=== PATIENT | male | born 1960 | race Caucasian/White ===

== ENCOUNTER 2017-07-28 09:02 | Inpatient (IN) | payer BC, OTHER ==
[~2017-07-28 09:02] MED LIST: Bisacodyl 5 MG Tab PO PRN; Lactated Ringers 1,000 ML IV SCH; Lidocaine 1%/Sod Bicarbonate in NS 8.4% 1 ML Syringe IV PRN; Magnesium Hydroxide 400 MG/5 ML Susp 30 ML Cup PO PRN; Morphine 2 MG/ML Syringe IVPUSH PRN; Naloxone 0.4 MG/ML SDV IVPUSH PRN; Ondansetron 4 MG/2 ML SDV IVPUSH PRN; Sennosides 8.6 MG Tab PO PRN; Sodium Chloride 0.9% 10 ML Syringe FLUSH PRN; diphenhydrAMINE 50 MG/ML SDV IVPUSH PRN
[2017-07-28] MEDS ORDERED: Iodine/Sodium Iodide 2% Tincture 30 ML Bottle ONE (09:23)
--- NOTE | 2017-07-28 09:44 | PCM.PREANE ---
Preanesthetic Assessment - Anesthesia/Transfusion/Family Hx Anesthesia History: Prior Anesthesia Without Reaction Family History of Anesthesia Reaction: No Transfusion History: No Prior Transfusion(s) - Review of Systems General: No Symptoms Pulmonary: No Symptoms Cardiovascular: No Symptoms Gastrointestinal: No Symptoms Neurological: No Symptoms Other: Reports: None - Physical Assessment NPO Status Date: 07/27/17 NPO Status Time: 00:00 Pulse: 69 O2 Sat by Pulse Oximetry: 97 Respiratory Rate: 16 Blood Pressure: 151/90 Temperature: 36.6 C Height: 1.75 m Weight: 103.374 kg ASA Class: 2 Mental Status: Alert & Oriented x3 Dentition: Reports: Normal Dentition Thyro-Mental Finger Breadths: 3 Mouth Opening Finger Breadths: 3 ROM/Head Extension: Full Lungs: Clear to Auscultation, Normal Respiratory Effort Cardiovascular: Regular Rate, Regular Rhythm, No Murmurs - Lab Values: Laboratory Last Values MRSA (PCR) Negative 07/15/17 16:00 - Allergies Allergies/Adverse Reactions: Allergies Allergy/AdvReac Type Severity Reaction Status Date / Time No Known Allergies Allergy Verified 07/27/17 11:04 - Acknowledgements Anesthesia Type Planned: Spinal Pt an Appropriate Candidate for the Planned Anesthesia: Yes Alternatives and Risks of Anesthesia Discussed w Pt/Guardian: Yes Pt/Guardian Understands and Agrees with Anesthesia Plan: Yes PreAnesthesia Questionnaire HEENT History: Reports: Impaired Vision, Other (See Below) Other HEENT History: wears glasses Cardiovascular History: Reports: SOB on Exertion Respiratory History: Reports: Sleep Apnea Gastrointestinal History: Reports: None Genitourinary History: Reports: None PRODUCE SPECIALIST History: Reports: None Musculoskeletal History: Reports: Osteoarthritis, Other (See Below) Neurological History: Reports: None Psychiatric History: Reports: None Endocrine/Metabolic History: Reports: Obesity/BMI 30+ Hematologic History: Reports: None Immunologic History: Reports: None Oncologic (Cancer) History: Reports: None Dermatologic History: Reports: None - Past Surgical History Head Surgeries/Procedures: Reports: None GI Surgical History: Reports: Colonoscopy Female Surgical History: Reports: None Male Surgical History: Reports: None Neurological Surgical History: Reports: Other (See Below) Other Neurological Surgeries/Procedures: back surgery Musculoskeletal Surgical History: Reports: Other (See Below) Other Musculoskeletal Surgeries/Procedures:: R carpal tunnel syndrome with repair, back surgery, left foot bone spur surgery Oncologic Surgical History: Reports: None Dermatological Surgical History: Reports: None - SUBSTANCE USE Smoking Status *Q: Never Smoker Tobacco Use Within Last Twelve Months: No Second Hand Smoke Exposure: No Days Per Week of Alcohol Use: 0 Number of Drinks Per Day: 0 Total Drinks Per Week: 0 Recreational Drug Use History: No - HOME MEDS Home Medications: Home Meds Aspirin [Adult Low Dose Aspirin EC] 81 mg PO DAILY 07/27/17 [History] - CURRENT (IN HOUSE) MEDS Current Meds: Current Medications Aspirin (Ecotrin) 325 mg PO BID [facility] Bisacodyl (Dulcolax) 5 mg PO DAILY PRN PRN Reason: Constipation Morphine Sulfate 8 mg/Epinephrine HCl 0.3 mg/Cefuroxime Sodium 750 mg/Ketorolac Tromethamine 30 mg/Sodium Chloride 27.9 ml 0 mg .XX ONETIME ONE Stop: 07/28/17 06:38 Cyclobenzaprine HCl (Flexeril) 10 mg PO TID PRN PRN Reason: Spasms Diphenhydramine HCl (Benadryl) 25 mg IVPUSH Q4H PRN PRN Reason: Nausea Docusate Sodium (Colace) 100 mg PO BID [facility] Famotidine (Pepcid) 20 mg PO Q12H [facility] Lactated Ringer's (Ringers, Lactated) 1,000 mls @ 125 mls/hr IV ASDIRECTED [facility] Stop: 07/28/17 18:00 Cefazolin Sodium/Dextrose 2 gm (/ Premix) 50 mls @ 100 mls/hr IV Q8H [facility] Stop: 07/28/17 23:14 Ketorolac Tromethamine (Toradol) 15 mg IVPUSH Q6H PRN PRN Reason: Pain Lidocaine/Sodium Bicarbonate (Buffered Lidocaine 1% In Ns 8.4%) 0.25 ml IV ONETIME PRN PRN Reason: Prior to IV Start Stop: 07/28/17 18:00 Magnesium Hydroxide (Milk Of Magnesia) 30 ml PO BID PRN PRN Reason: Constipation Morphine Sulfate (Morphine) 2 mg IVPUSH Q2H PRN PRN Reason: Breakthrough Pain Naloxone HCl (Narcan) 0.1 mg IVPUSH Q5M PRN PRN Reason: Oversedation Ondansetron HCl (Zofran) 4 mg IVPUSH Q6H PRN PRN Reason: Nausea/Vomiting Oxycodone/Acetaminophen (Percocet 325-5 Mg) 1 - 2 tab PO Q4H PRN PRN Reason: Pain Senna (Senna) 8.6 mg PO BID PRN PRN Reason: Constipation Sodium Chloride (Saline Flush) 10 ml FLUSH ASDIRECTED PRN PRN Reason: Keep Vein Open Discontinued Medications Bupivacaine HCl (Marcaine 0.25%) Confirm Administered Dose 30 ml .ROUTE .STK- MED ONE Stop: 07/28/17 09:24 Cefazolin Sodium (Ancef) Confirm Administered Dose 2 gm .ROUTE .STK-MED ONE Stop: 07/28/17 09:24 Iodine (Iodine 2% Mild Tincture) Confirm Administered Dose 30 ml .ROUTE .STK- MED ONE Stop: 07/28/17 09:24 Tranexamic Acid (Cyklokapron) Confirm Administered Dose 1,000 mg .ROUTE .STK- MED ONE Stop: 07/28/17 09:24 Vancomycin HCl (Vancomycin) Confirm Administered Dose 1 gm .ROUTE .STK-MED ONE Stop: 07/28/17 09:24
[2017-07-28] MEDS ORDERED: Ondansetron 4 MG/2 ML SDV ONE (10:07)
[2017-07-28] MEDS ORDERED: Propofol 200 MG/20 ML SDV ONE ×3 (10:07→11:42)
[2017-07-28] MEDS ORDERED: Midazolam 1 MG/ML 2 ML SDV ONE (10:07)
[2017-07-28] MEDS ORDERED: fentaNYL 100 MCG/2 ML SDV ONE (10:07)
[2017-07-28] MEDS ORDERED: Lidocaine 1% 4 ML ONE (10:07)
[2017-07-28] MEDS ORDERED: ceFAZolin 1 GM Vial ONE (10:08)
[2017-07-28] MEDS ORDERED: Morphine PF 1 MG/ML Amp ONE (10:33)
[2017-07-28] MEDS: Bupivacaine 0.25% 30 ML SDV ONE ×2 (11:11→11:30)
[2017-07-28] MEDS: ceFAZolin 1 GM Vial ONE ×2 (11:13→11:25)
[2017-07-28] MEDS: Morphine 8 MG, EPINEPHrine 0.3 MG, Cefuroxime 750 MG, Ketorolac 30 MG, Sodium Chloride ... ONE ×10 (11:17→11:30)
[2017-07-28] MEDS: Vancomycin 1 GM SDV ONE ×2 (11:18→11:35)
[2017-07-28] MEDS ORDERED: fentaNYL 100 MCG/2 ML SDV IVPUSH PRN (12:16)
--- NOTE | 2017-07-28 12:18 | PCM.POSTAN ---
POST ANESTHESIA ASSESSMENT - MENTAL STATUS Mental Status: Alert, Oriented - VITAL SIGNS Pulse Rate: 64 SaO2: 98 Resp Rate: 19 Blood Pressure: 123/74 Temperature: 36.6 C - RESPIRATORY Respiratory Status: Respiratory Rate WNL, Airway Patent, O2 Saturation Stable - CARDIOVASCULAR CV Status: Pulse Rate WNL, Blood Pressure Stable - GASTROINTESTINAL GI Status: No Symptoms - PAIN Pain Score: 0 - POST OP HYDRATION Hydration Status: Adequate & Stable - OBSERVATIONS Free Text/Narrative:: no anesthesia complications noted
--- NOTE | 2017-07-28 13:22 | CR ---
Right knee: AP and lateral views of the right knee were obtained. Comparison: No previous knee exam. Knee prosthesis is seen. Components are aligned. Soft tissue air is noted. Underlying bony structures are intact. Impression: 1. Satisfactory appearance of a recently placed right knee prosthesis. Diagnostic code #2
[2017-07-28] MEDS: ceFAZolin 2 GM in Premix Bag 1 BAG IV SCH (17:08)
[2017-07-28] MEDS: Acetaminophen/oxyCODONE 325-5 MG Tab PO PRN (20:16)
[2017-07-28] MEDS: Famotidine 20 MG Tab PO SCH (20:16)
[2017-07-28] MEDS: Docusate Sodium 100 MG Cap PO SCH (20:16)
--- NOTE | 2017-07-28 20:58 | PCM.CONS ---
H&P History of Present Illness - General Date of Service: 07/28/17 Admit Problem/Dx: Admission Diagnosis/Problem Admission Diagnosis/Problem Osteoarthritis of knee Source of Information: Patient, Old Records, RN, RN Notes Reviewed, Other ( Surgical notes) History Limitations: Reports: No Limitations - History of Present Illness Initial Comments - Free Text/Narative: New Andrade is a 56 yo male patient of Dr. Beaulieu who is post-operative day 0 of right TKA. Hospital medicine was consulted for post-operative medical care. At this time he is resting comfortably in the chair. Pain is absent. He denies any chest pain, shortness of breath, palpitations, nausea, or vomiting. He carries a history of: Impaired vision, sleep apnea, osteoarthritis, obesity. He was never a smoker. He is a full code. His primary care provider is Dr. Silva at [facility] in [place]. Right Knee Pain Score (Numeric/FACES): 0 - Related Data Allergies/Adverse Reactions: Allergies Allergy/AdvReac Type Severity Reaction Status Date / Time No Known Allergies Allergy Verified 07/28/17 14:15 Home Medications: Home Meds Aspirin [Adult Low Dose Aspirin EC] 81 mg PO DAILY 07/27/17 [History] Cholecalciferol (Vitamin D3) [Vitamin D3] 1 tab PO DAILY 07/28/17 [History] Past Medical History HEENT History: Reports: Impaired Vision, Other (See Below) Other HEENT History: wears glasses Cardiovascular History: Reports: SOB on Exertion Respiratory History: Reports: Sleep Apnea Gastrointestinal History: Reports: None Genitourinary History: Reports: None ETCHER ELECTROLYTIC History: Reports: None Musculoskeletal History: Reports: Osteoarthritis, Other (See Below) Neurological History: Reports: None Psychiatric History: Reports: None Endocrine/Metabolic History: Reports: Obesity/BMI 30+ Hematologic History: Reports: None Immunologic History: Reports: None Oncologic (Cancer) History: Reports: None Dermatologic History: Reports: None - Past Surgical History Head Surgeries/Procedures: Reports: None GI Surgical History: Reports: Colonoscopy Male Surgical History: Reports: None Neurological Surgical History: Reports: Other (See Below) Other Neurological Surgeries/Procedures: back surgery Musculoskeletal Surgical History: Reports: Other (See Below) Other Musculoskeletal Surgeries/Procedures:: R carpal tunnel syndrome with repair, back surgery, left foot bone spur surgery Oncologic Surgical History: Reports: None Dermatological Surgical History: Reports: None Social & Family History - Tobacco Use Smoking Status *Q: Never Smoker Second Hand Smoke Exposure: No - Caffeine Use Caffeine Use: Reports: None - Alcohol Use Days Per Week of Alcohol Use: 0 Number of Drinks Per Day: 0 Total Drinks Per Week: 0 - Recreational Drug Use Recreational Drug Use: No Drug Use in Last 12 Months: No H&P Review of Systems - Review of Systems: Review Of Systems: See Below General: Reports: Diaphoresis. Denies: Fever, Chills, Malaise, Weakness, Fatigue HEENT: Reports: No Symptoms. Denies: Dysphasia, Ear Pain, Eye Pain, Sore Throat , Vertigo Pulmonary: Reports: No Symptoms. Denies: Shortness of Breath, Wheezing, Pleuritic Chest Pain, Cough, Sputum Cardiovascular: Reports: No Symptoms. Denies: Chest Pain, Palpitations, Dyspnea on Exertion, Orthopnea, Edema, Lightheadedness Gastrointestinal: Reports: Nausea (About a hour ago which has resolved ), Vomiting (1 hour prior, resolved now ). Denies: Abdominal Pain, Constipation, Diarrhea Genitourinary: Reports: No Symptoms. Denies: Dysuria, Frequency, Burning, Pain , Urgency Musculoskeletal: Reports: Joint Pain (Right knee pain - absent now ). Denies: Neck Pain, Shoulder Pain, Arm Pain, Back Pain, Hand Pain, Leg Pain, Foot Pain, Joint Swelling Skin: Reports: No Symptoms Psychiatric: Reports: No Symptoms Neurological: Reports: No Symptoms Hematologic/Lymphatic: Reports: No Symptoms Immunologic: Reports: No Symptoms Exam - Exam Exam: See Below - Vital Signs Vital Signs: Last Vital Signs Temp 97.0 F 07/28/17 19:44 Pulse 60 07/28/17 19:44 Resp 16 07/28/17 19:44 BP 151/84 H 07/28/17 18:00 Pulse Ox 99 07/28/17 19:44 Weight: 227 lb - Exam Quality Assessment: Supplemental Oxygen, DVT Prophylaxis General: Alert, Oriented, Cooperative. No: Mild Distress HEENT: PERRLA, Hearing Intact, Mucosa Moist & Ocean, Nares Patent, Normal Nasal Septum, Posterior Pharynx Clear, Conjunctiva Clear, EOMI, EACs Clear, TMs Clear Neck: Supple, Trachea Midline. No: JVD, Thyromegaly Lungs: Clear to Auscultation, Normal Respiratory Effort Cardiovascular: Regular Rate, Regular Rhythm GI/Abdominal Exam: Normal Bowel Sounds, Soft, Non-Tender, No Organomegaly, No Distention, No Abnormal Bruit, No Mass, Pelvis Stable (Male) Exam: Deferred Rectal (Males) Exam: Deferred Back Exam: Normal Inspection, Full Range of Motion Extremities: No Pedal Edema, Normal Capillary Refill, Other (CRYSTAL bandage in place on right leg. Bandage is dry and intact. Cooling device in place. ) Peripheral Pulses: 2+: Radial (L), Radial (R), Posterior Tibial (L), Posterior Tibial (R), Dorsalis Pedis (L), Dorsalis Pedis (R) Skin: Warm, Dry, Intact Neurological: Cranial Nerves Intact (Grossly) Neuro Extensive - Mental Status: Alert, Oriented x3, Normal Mood/Affect, Normal Cognition, Memory Intact Neuro Extensive - Motor, Sensory, Reflexes: CN II-XII Intact (Grossly) Psychiatric: Alert, Normal Affect, Normal Mood Consult PN Assessment/Plan POD#: 0 Procedures: Procedures FLUOROSCOPE EXAMINATION (08/08/16) MR-STAPH DNA AMP PROBE (08/08/16) MRI JNT OF LWR EXTRE W/O DYE (06/30/17) MRI LOWER EXTREMITY W/O DYE (06/30/17) MRI NECK SPINE W/O DYE (06/08/15) PART REMOVAL OF METATARSAL (08/08/16) X-RAY EXAM NECK SPINE 6/>VWS (06/21/15) (1) S/P total knee arthroplasty SNOMED Code(s): 3348901125763, 3026336895235 Code(s): Z96.659 - PRESENCE OF UNSPECIFIED ARTIFICIAL KNEE JOINT Priority: High Current Visit: Yes Qualifiers: Laterality: right Qualified Code(s): Z96.651 - Presence of right artificial knee joint (2) Osteoarthritis SNOMED Code(s): 642365266 Code(s): M19.90 - UNSPECIFIED OSTEOARTHRITIS, UNSPECIFIED SITE Priority: High Current Visit: Yes Qualifiers: Osteoarthritis location: knee Osteoarthritis type: primary Laterality: right Qualified Code(s): M17.11 - Unilateral primary osteoarthritis, right knee (3) Sleep apnea SNOMED Code(s): 06261277 Code(s): G47.30 - SLEEP APNEA, UNSPECIFIED Priority: Medium Current Visit : Yes Qualifiers: Sleep apnea type: unspecified type Qualified Code(s): G47.30 - Sleep apnea , unspecified (4) Obesity (BMI 30.0-34.9) SNOMED Code(s): 399392982 Code(s): E66.9 - OBESITY, UNSPECIFIED Priority: Low Current Visit: Yes Problem List Initiated/Reviewed/Updated: Yes Plan: I/P: Acute: S/P right total knee arthroplasty - post-operative day 0 -DVT prophylaxis and pain management per primary care team -PT/OT -IS/RT -Monitor oxygen saturation -Titrate oxygen as needed -Vital signs stable Osteoarthritis of right knee -Pain management per primary care team Chronic: Vision impairment Sleep apnea Obesity Plan: SW/CM for discharge planning GI prophylaxis Home medications as indicated Other orders as listed above Routine AM labs He is a full code. His PCP is Dr. Silva at [facility] in [place]. Thank you for allowing us to participate in the care of this patient!! Requesting Provider: Dr. Beaulieu Date Consult Requested: 07/28/17 Reason for Consult: Post-operative medical managment Patient History Reviewed: Yes Admission H&P Reviewed: Yes
[2017-07-28] MEDS: Ketorolac 15 MG/ML SDV IVPUSH PRN (23:11)
[2017-07-28] MEDS: Cyclobenzaprine 10 MG Tab PO PRN (23:12)
[2017-07-29] MEDS: Acetaminophen/oxyCODONE 325-5 MG Tab PO PRN ×3 (00:22→12:16)
[2017-07-29] MEDS: ceFAZolin 2 GM in Premix Bag 1 BAG IV SCH ×2 (00:29→09:36)
[2017-07-29] MEDS: Cyclobenzaprine 10 MG Tab PO PRN (04:57)
--- NOTE | 2017-07-29 07:42 | PCM.CONSN ---
- General Info Date of Service: 07/29/17 Admission Dx/Problem (Free Text): Admission Diagnosis/Problem Admission Diagnosis/Problem Osteoarthritis of knee Status post right total knee arthroplasty, postop day #1 Doing well, pain is controlled, no nausea. Functional Status: Reports: Pain Controlled, Tolerating Diet, Ambulating, Urinating, Incentive Spirometry - Review of Systems General: Reports: No Symptoms HEENT: Reports: No Symptoms Pulmonary: Reports: No Symptoms Cardiovascular: Reports: No Symptoms Gastrointestinal: Reports: No Symptoms Genitourinary: Reports: No Symptoms Musculoskeletal: Reports: Leg Pain Skin: Reports: No Symptoms Neurological: Reports: No Symptoms Psychiatric: Reports: No Symptoms - Patient Data Vitals - Most Recent: Last Vital Signs Temp 97.5 F 07/29/17 05:01 Pulse 70 07/29/17 05:01 Resp 18 07/29/17 07:00 BP 145/79 H 07/29/17 05:01 Pulse Ox 93 L 07/29/17 05:01 Weight - Most Recent: 235 lb 1.6 oz I&O - Last 24 Hours: Intake & Output 07/28/17 07/29/17 07/29/17 22:59 06:59 14:59 Intake Total 240 1700 Output Total 245 Balance 240 1455 Lab Results Last 24 Hours: Laboratory Results - last 24 hr 07/29/17 07/29/17 Range/Units 05:35 05:35 WBC 11.78 H (4.23-9.07) K/mm3 RBC 4.28 L (4.63-6.08) M/mm3 Hgb 12.6 L (13.7-17.5) gm/L Hct 38.3 L (40.1-51.0) % MCV 89.5 (79.0-92.2) fl MCH 29.4 (25.7-32.2) pg MCHC 32.9 (32.2-35.5) g/dl RDW Std Deviation 45.9 H (35.1-43.9) fL Plt Count 177 (163-337) K/mm3 MPV 10.7 (9.4-12.3) fl Sodium 137 (136-145) mEq/L Potassium 3.7 (3.5-5.1) mEq/L Chloride 104 (98-107) mEq/L Carbon Dioxide 29 (21-32) mEq/L Anion Gap 7.7 (5-15) BUN 16 (7-18) mg/dL Creatinine 0.9 (0.7-1.3) mg/dL Est Cr Clr Drug Dosing 90.56 mL/min Estimated GFR (MDRD) > 60 (>60) mL/min BUN/Creatinine Ratio 17.8 (14-18) Glucose 116 H (74-106) mg/dL Calcium 8.6 (8.5-10.1) mg/dL Total Bilirubin 0.6 (0.2-1.0) mg/dL AST 27 (15-37) U/L ALT 40 (16-63) U/L Alkaline Phosphatase 61 (46-116) U/L Total Protein 6.0 L (6.4-8.2) g/dl Albumin 3.3 L (3.4-5.0) g/dl Globulin 2.7 gm/dL Albumin/Globulin Ratio 1.2 (1-2) Med Orders - Current: Current Medications Aspirin (Ecotrin) 325 mg PO BID [facility] Bisacodyl (Dulcolax) 5 mg PO DAILY PRN PRN Reason: Constipation Cyclobenzaprine HCl (Flexeril) 10 mg PO TID PRN PRN Reason: Spasms Last Admin: 07/29/17 04:57 Dose: 10 mg Diphenhydramine HCl (Benadryl) 25 mg IVPUSH Q4H PRN PRN Reason: Nausea Docusate Sodium (Colace) 100 mg PO BID [facility] Last Admin: 07/28/17 20:16 Dose: 100 mg Famotidine (Pepcid) 20 mg PO Q12H [facility] Last Admin: 07/28/17 20:16 Dose: 20 mg Cefazolin Sodium/Dextrose 2 gm (/ Premix) 50 mls @ 100 mls/hr IV Q8H [facility] Stop: 07/29/17 09:59 Last Admin: 07/29/17 00:29 Dose: 100 mls/hr Ketorolac Tromethamine (Toradol) 15 mg IVPUSH Q6H PRN PRN Reason: Pain Last Admin: 07/28/17 23:11 Dose: 15 mg Magnesium Hydroxide (Milk Of Magnesia) 30 ml PO BID PRN PRN Reason: Constipation Morphine Sulfate (Morphine) 2 mg IVPUSH Q2H PRN PRN Reason: Breakthrough Pain Naloxone HCl (Narcan) 0.1 mg IVPUSH Q5M PRN PRN Reason: Oversedation Ondansetron HCl (Zofran) 4 mg IVPUSH Q6H PRN PRN Reason: Nausea/Vomiting Last Admin: 07/28/17 17:39 Dose: 4 mg Oxycodone/Acetaminophen (Percocet 325-5 Mg) 1 - 2 tab PO Q4H PRN PRN Reason: Pain Last Admin: 07/29/17 04:53 Dose: 2 tab Senna (Senna) 8.6 mg PO BID PRN PRN Reason: Constipation Discontinued Medications Bupivacaine HCl (Marcaine 0.25%) Confirm Administered Dose 30 ml .ROUTE .STK- MED ONE Stop: 07/28/17 09:24 Last Admin: 07/28/17 11:30 Dose: 30 ml Cefazolin Sodium (Ancef) Confirm Administered Dose 2 gm .ROUTE .STK-MED ONE Stop: 07/28/17 09:24 Last Admin: 07/28/17 11:25 Dose: 2 gm Cefazolin Sodium (Ancef) Confirm Administered Dose 2 gm .ROUTE .STK-MED ONE Stop: 07/28/17 10:09 Morphine Sulfate 8 mg/Epinephrine HCl 0.3 mg/Cefuroxime Sodium 750 mg/Ketorolac Tromethamine 30 mg/Sodium Chloride 27.9 ml 0 mg .XX ONETIME ONE Stop: 07/28/17 06:38 Last Admin: 07/28/17 11:30 Dose: 788.3 mg Fentanyl (Sublimaze) Confirm Administered Dose 100 mcg .ROUTE .STK-MED ONE Stop: 07/28/17 10:08 Fentanyl (Sublimaze) 50 mcg IVPUSH Q5M PRN PRN Reason: PAIN Stop: 07/28/17 15:00 Lactated Ringer's (Ringers, Lactated) 1,000 mls @ 125 mls/hr IV ASDIRECTED [facility] Stop: 07/28/17 18:00 Last Admin: 07/28/17 09:30 Dose: 125 mls/hr Lidocaine HCl (Xylocaine-Mpf 1%) Confirm Administered Dose 4 mls @ as directed .ROUTE .STK-MED ONE Stop: 07/28/17 10:08 Iodine (Iodine 2% Mild Tincture) Confirm Administered Dose 30 ml .ROUTE .STK- MED ONE Stop: 07/28/17 09:24 Last Admin: 07/28/17 11:22 Dose: 18 ml Lidocaine/Sodium Bicarbonate (Buffered Lidocaine 1% In Ns 8.4%) 0.25 ml IV ONETIME PRN PRN Reason: Prior to IV Start Stop: 07/28/17 18:00 Last Admin: 07/28/17 09:30 Dose: 0.25 ml Midazolam HCl (Versed 1 Mg/Ml) Confirm Administered Dose 2 mg .ROUTE .STK-MED ONE Stop: 07/28/17 10:08 Morphine Sulfate (Duramorph Pf) Confirm Administered Dose 1 mg .ROUTE .STK-MED ONE Stop: 07/28/17 10:34 Ondansetron HCl (Zofran) Confirm Administered Dose 4 mg .ROUTE .STK-MED ONE Stop: 07/28/17 10:08 Propofol (Diprivan 20 Ml) Confirm Administered Dose 200 mg .ROUTE .STK-MED ONE Stop: 07/28/17 10:08 Propofol (Diprivan 20 Ml) Confirm Administered Dose 200 mg .ROUTE .STK-MED ONE Stop: 07/28/17 11:06 Propofol (Diprivan 20 Ml) Confirm Administered Dose 200 mg .ROUTE .STK-MED ONE Stop: 07/28/17 11:43 Sodium Chloride (Saline Flush) 10 ml FLUSH ASDIRECTED PRN PRN Reason: Keep Vein Open Stop: 07/28/17 18:00 Tranexamic Acid (Cyklokapron) Confirm Administered Dose 1,000 mg .ROUTE .STK- MED ONE Stop: 07/28/17 09:24 Last Admin: 07/28/17 11:38 Dose: 1,000 mg Vancomycin HCl (Vancomycin) Confirm Administered Dose 1 gm .ROUTE .STK-MED ONE Stop: 07/28/17 09:24 Last Admin: 07/28/17 11:35 Dose: 1 gm - Exam Quality Assessment: DVT Prophylaxis General: Alert, Oriented, Cooperative, No Acute Distress HEENT: Pupils Equal, Pupils Reactive, Mucous Membr. Moist/[place] Neck: Supple Lungs: Clear to Auscultation, Normal Respiratory Effort Cardiovascular: Regular Rate, Regular Rhythm GI/Abdominal Exam: Normal Bowel Sounds, Soft, Non-Tender (Male) Exam: Deferred Extremities: Other (rt knee with ailyn wrap present, ice. CMS + and = distally bilat.) Peripheral Pulses: 2+: Dorsalis Pedis (L), Dorsalis Pedis (R) Neurological: No New Focal Deficit Psy/Mental Status: Alert, Normal Affect, Normal Mood Consult PN Assessment/Plan POD#: 1 Procedures: Procedures FLUOROSCOPE EXAMINATION (08/08/16) MR-STAPH DNA AMP PROBE (08/08/16) MRI JNT OF LWR EXTRE W/O DYE (06/30/17) MRI LOWER EXTREMITY W/O DYE (06/30/17) MRI NECK SPINE W/O DYE (06/08/15) PART REMOVAL OF METATARSAL (08/08/16) X-RAY EXAM NECK SPINE 6/>VWS (06/21/15) (1) S/P total knee arthroplasty SNOMED Code(s): 9953189975826, 4590003090562 Code(s): Z96.659 - PRESENCE OF UNSPECIFIED ARTIFICIAL KNEE JOINT Priority: High Current Visit: Yes Qualifiers: Laterality: right Qualified Code(s): Z96.651 - Presence of right artificial knee joint (2) Osteoarthritis SNOMED Code(s): 733349803 Code(s): M19.90 - UNSPECIFIED OSTEOARTHRITIS, UNSPECIFIED SITE Priority: High Current Visit: Yes Qualifiers: Osteoarthritis location: knee Osteoarthritis type: primary Laterality: right Qualified Code(s): M17.11 - Unilateral primary osteoarthritis, right knee (3) Sleep apnea SNOMED Code(s): 49927115 Code(s): G47.30 - SLEEP APNEA, UNSPECIFIED Priority: Medium Current Visit : Yes Qualifiers: Sleep apnea type: unspecified type Qualified Code(s): G47.30 - Sleep apnea , unspecified (4) Obesity (BMI 30.0-34.9) SNOMED Code(s): 062736488 Code(s): E66.9 - OBESITY, UNSPECIFIED Priority: Low Current Visit: Yes Problem List Initiated/Reviewed/Updated: Yes Plan: I/P: S/P total knee arthroplasty, POD # 1, Dr. Beaulieu - Pain management and DVT prophylax - PT/OT - RT/IS - Hgb 12.6 Chronic conditions: Obstructive sleep apnea Obesity Other: GI Prophylax CM/SW for DC planning- okay for discharge home from hospitalist standpoint today Patient is full Code status. PCP is Dr. Yasir Silva with [facility] in [place].
[2017-07-29] MEDS ORDERED: Aspirin 325 MG Tab.EC PO SCH (09:00)
[2017-07-29] MEDS: Docusate Sodium 100 MG Cap PO SCH (09:09)
[2017-07-29] MEDS: Famotidine 20 MG Tab PO SCH (09:10)
[2017-07-29 12:03] VITALS: BP 140/67
[2017-07-29] MEDS: Ketorolac 15 MG/ML SDV IVPUSH PRN (12:21)
--- NOTE | 2017-07-29 16:49 | PCM.SURGPN ---
- General Info Date of Service: 07/29/17 POD#: 1 Functional Status: Reports: Pain Controlled, Tolerating Diet, Urinating, Incentive Spirometry - Review of Systems Musculoskeletal: Reports: Other (The pt has met inpatient therapy goals and feels prepared for discharge to home.) - Patient Data Vitals - Most Recent: Last Vital Signs Temp 98.8 F 07/29/17 12:01 Pulse 74 07/29/17 12:01 Resp 17 07/29/17 13:00 BP 140/67 07/29/17 12:01 Pulse Ox 94 L 07/29/17 12:01 Weight - Most Recent: 235 lb 1.6 oz I&O - Last 24 Hours: Intake & Output 07/29/17 07/29/17 07/29/17 06:59 14:59 22:59 Intake Total 1700 120 Output Total 245 Balance 1455 120 Lab Results Last 24 Hrs: Laboratory Results - last 24 hr 07/29/17 07/29/17 Range/Units 05:35 05:35 WBC 11.78 H (4.23-9.07) K/mm3 RBC 4.28 L (4.63-6.08) M/mm3 Hgb 12.6 L (13.7-17.5) gm/L Hct 38.3 L (40.1-51.0) % MCV 89.5 (79.0-92.2) fl MCH 29.4 (25.7-32.2) pg MCHC 32.9 (32.2-35.5) g/dl RDW Std Deviation 45.9 H (35.1-43.9) fL Plt Count 177 (163-337) K/mm3 MPV 10.7 (9.4-12.3) fl Sodium 137 (136-145) mEq/L Potassium 3.7 (3.5-5.1) mEq/L Chloride 104 (98-107) mEq/L Carbon Dioxide 29 (21-32) mEq/L Anion Gap 7.7 (5-15) BUN 16 (7-18) mg/dL Creatinine 0.9 (0.7-1.3) mg/dL Est Cr Clr Drug Dosing 90.56 mL/min Estimated GFR (MDRD) > 60 (>60) mL/min BUN/Creatinine Ratio 17.8 (14-18) Glucose 116 H (74-106) mg/dL Calcium 8.6 (8.5-10.1) mg/dL Total Bilirubin 0.6 (0.2-1.0) mg/dL AST 27 (15-37) U/L ALT 40 (16-63) U/L Alkaline Phosphatase 61 (46-116) U/L Total Protein 6.0 L (6.4-8.2) g/dl Albumin 3.3 L (3.4-5.0) g/dl Globulin 2.7 gm/dL Albumin/Globulin Ratio 1.2 (1-2) Med Orders - Current: Current Medications Discontinued Medications Aspirin (Ecotrin) 325 mg PO BID [facility] Last Admin: 07/29/17 09:09 Dose: 325 mg Bisacodyl (Dulcolax) 5 mg PO DAILY PRN PRN Reason: Constipation Bupivacaine HCl (Marcaine 0.25%) Confirm Administered Dose 30 ml .ROUTE .STK- MED ONE Stop: 07/28/17 09:24 Last Admin: 07/28/17 11:30 Dose: 30 ml Cefazolin Sodium (Ancef) Confirm Administered Dose 2 gm .ROUTE .STK-MED ONE Stop: 07/28/17 09:24 Last Admin: 07/28/17 11:25 Dose: 2 gm Cefazolin Sodium (Ancef) Confirm Administered Dose 2 gm .ROUTE .STK-MED ONE Stop: 07/28/17 10:09 Morphine Sulfate 8 mg/Epinephrine HCl 0.3 mg/Cefuroxime Sodium 750 mg/Ketorolac Tromethamine 30 mg/Sodium Chloride 27.9 ml 0 mg .XX ONETIME ONE Stop: 07/28/17 06:38 Last Admin: 07/28/17 11:30 Dose: 788.3 mg Cyclobenzaprine HCl (Flexeril) 10 mg PO TID PRN PRN Reason: Spasms Last Admin: 07/29/17 04:57 Dose: 10 mg Diphenhydramine HCl (Benadryl) 25 mg IVPUSH Q4H PRN PRN Reason: Nausea Docusate Sodium (Colace) 100 mg PO BID [facility] Last Admin: 07/29/17 09:09 Dose: 100 mg Famotidine (Pepcid) 20 mg PO Q12H [facility] Last Admin: 07/29/17 09:10 Dose: 20 mg Fentanyl (Sublimaze) Confirm Administered Dose 100 mcg .ROUTE .STK-MED ONE Stop: 07/28/17 10:08 Fentanyl (Sublimaze) 50 mcg IVPUSH Q5M PRN PRN Reason: PAIN Stop: 07/28/17 15:00 Lactated Ringer's (Ringers, Lactated) 1,000 mls @ 125 mls/hr IV ASDIRECTED [facility] Stop: 07/28/17 18:00 Last Admin: 07/28/17 09:30 Dose: 125 mls/hr Cefazolin Sodium/Dextrose 2 gm (/ Premix) 50 mls @ 100 mls/hr IV Q8H [facility] Stop: 07/29/17 09:59 Last Admin: 07/29/17 09:36 Dose: 100 mls/hr Lidocaine HCl (Xylocaine-Mpf 1%) Confirm Administered Dose 4 mls @ as directed .ROUTE .STK-MED ONE Stop: 07/28/17 10:08 Iodine (Iodine 2% Mild Tincture) Confirm Administered Dose 30 ml .ROUTE .STK- MED ONE Stop: 07/28/17 09:24 Last Admin: 07/28/17 11:22 Dose: 18 ml Ketorolac Tromethamine (Toradol) 15 mg IVPUSH Q6H PRN PRN Reason: Pain Last Admin: 07/29/17 12:21 Dose: 15 mg Lidocaine/Sodium Bicarbonate (Buffered Lidocaine 1% In Ns 8.4%) 0.25 ml IV ONETIME PRN PRN Reason: Prior to IV Start Stop: 07/28/17 18:00 Last Admin: 07/28/17 09:30 Dose: 0.25 ml Magnesium Hydroxide (Milk Of Magnesia) 30 ml PO BID PRN PRN Reason: Constipation Midazolam HCl (Versed 1 Mg/Ml) Confirm Administered Dose 2 mg .ROUTE .STK-MED ONE Stop: 07/28/17 10:08 Morphine Sulfate (Morphine) 2 mg IVPUSH Q2H PRN PRN Reason: Breakthrough Pain Morphine Sulfate (Duramorph Pf) Confirm Administered Dose 1 mg .ROUTE .STK-MED ONE Stop: 07/28/17 10:34 Naloxone HCl (Narcan) 0.1 mg IVPUSH Q5M PRN PRN Reason: Oversedation Ondansetron HCl (Zofran) 4 mg IVPUSH Q6H PRN PRN Reason: Nausea/Vomiting Last Admin: 07/28/17 17:39 Dose: 4 mg Ondansetron HCl (Zofran) Confirm Administered Dose 4 mg .ROUTE .STK-MED ONE Stop: 07/28/17 10:08 Oxycodone/Acetaminophen (Percocet 325-5 Mg) 1 - 2 tab PO Q4H PRN PRN Reason: Pain Last Admin: 07/29/17 12:16 Dose: 2 tab Propofol (Diprivan 20 Ml) Confirm Administered Dose 200 mg .ROUTE .STK-MED ONE Stop: 07/28/17 10:08 Propofol (Diprivan 20 Ml) Confirm Administered Dose 200 mg .ROUTE .STK-MED ONE Stop: 07/28/17 11:06 Propofol (Diprivan 20 Ml) Confirm Administered Dose 200 mg .ROUTE .STK-MED ONE Stop: 07/28/17 11:43 Senna (Senna) 8.6 mg PO BID PRN PRN Reason: Constipation Sodium Chloride (Saline Flush) 10 ml FLUSH ASDIRECTED PRN PRN Reason: Keep Vein Open Stop: 07/28/17 18:00 Tranexamic Acid (Cyklokapron) Confirm Administered Dose 1,000 mg .ROUTE .STK- MED ONE Stop: 07/28/17 09:24 Last Admin: 07/28/17 11:38 Dose: 1,000 mg Vancomycin HCl (Vancomycin) Confirm Administered Dose 1 gm .ROUTE .STK-MED ONE Stop: 07/28/17 09:24 Last Admin: 07/28/17 11:35 Dose: 1 gm - Exam Wound/Incisions: Dressing Dry and Intact General: Alert, Cooperative, No Acute Distress Extremities: Other (NVS intact for BLE. [place]'s negative for BLE.) - Problem List Review Problem List Initiated/Reviewed/Updated: Yes - My Orders Last 24 Hours: Active Orders 24 hr Category Date Time Status Ready for Discharge [RC] PER UNIT ROUTINE Care 07/29/17 12:48 Active Pulse Oximetry Continuous Monitoring [OM.PC] Routine Oth 07/28/17 18:31 Active - Assessment Assessment (Free Text/Narrative):: POD#1 - right TKA - Plan Plan (Free Text/Narrative):: 1. Discharge to home today. The pt will have the assistance of his . 2. Hgb 12.6. 3. ASA 325mg BID and frequent mobility, TEDs. 4. Outpatient therapy. The pt's case was discussed with Dr. Beaulieu today.
--- NOTE | 2017-08-01 15:32 | PCM.DCSUM1 ---
Discharge Summary - Hospital Course Brief History: New is a 56 yo male who underwent right TKA with Dr. Beaulieu on . The procedure was completed under spinal anesthesia. The pt tolerated the procedure well and was admitted to the Medical-Surgical Unit. Medical management was provided by the Hospitalist service. The pt's Hospital course was uneventful. The pt's Hgb on POD#1 was 12.6. On POD#1, 325mg ASA BID was initiated for VTE prophylaxis. SCDs and TEDs were also ordered. A Mepilex dressing was placed at the incision site at the time of surgery and remained clean and dry. The pt participated in P.T. and O.T. and progressed well. The pt was allowed to WBAT. On POD#1, the pt was deemed appropriate to discharge to home with his . - Discharge Data Discharge Date: 07/29/17 Discharge Disposition: Home, Self-Care 01 Condition: Good - Patient Summary/Data Consults: Consultations 07/28/17 06:38 Consult to Physician [CONS] Routine OT Evaluation and Treatment [CONS] Routine 07/28/17 06:41 PT Evaluation and Treatment [CONS] Routine - Patient Instructions Diet: Usual Diet as Tolerated Activity: Apply Ice, As Tolerated, Elevate Extremity, Full Weight Bearing Driving: Do Not Drive Showering/Bathing: May Shower Wound/Incision Care: Keep Operative Site/Wound Site Clean and Dry, Do NOT Change Dressing Notify Provider of: Fever, Increased Pain, Swelling and Redness, Drainage, Nausea and/or Vomiting Other/Special Instructions: Please get up and moving around every hour while awake. This helps to prevent blood clots. Please use your walker and have help as needed. Take a 325mg ASPIRIN TWICE DAILY. This also helps to prevent blood clots. The aspirin is being used for blood clot prevention and not for pain management, so please do not miss a dose of the medication. Do the exercises you were taught in the Hospital. Schedule for P.T. Use the pain medication as needed. The medication may cause drowsiness and constipation. Contact your primary care provider for instructions if you are constipated. You may use a stool softener like docusate sodium or Colace 100mg twice daily and/or a laxative like Miralax daily for constipation. Use the ice machine often. Elevate the limb to decrease swelling. Keep the Mepilex dressing in place until follow-up at the Clinic. Notify the Clinic if the dressing is saturated. Wear the ERIC hose during the day and you may remove these at night. Eat a diet high in protein as this well help with healing. Schedule an appointment with your primary care provider for 'routine post-op care'. Call the Clinic with questions or concerns - [phone]. - Discharge Plan Prescriptions/Med Rec: Acetaminophen/oxyCODONE [Percocet 325-5 MG] 1 - 2 tab PO Q4H PRN #60 tablet PRN Reason: Pain Aspirin [Ecotrin] 325 mg PO BID #70 tab.ec Cyclobenzaprine [Flexeril] 10 mg PO TID PRN #40 tablet PRN Reason: Spasms Home Medications: Home Meds Cholecalciferol (Vitamin D3) [Vitamin D3] 1 tab PO DAILY 07/28/17 [History] Acetaminophen/oxyCODONE [Percocet 325-5 MG] 1 - 2 tab PO Q4H PRN #60 tablet 08/03 [Rx] Aspirin [Ecotrin] 325 mg PO BID #70 tab.ec 07/29/17 [Rx] Cyclobenzaprine [Flexeril] 10 mg PO TID PRN #40 tablet 07/29/17 [Rx] Docusate Sodium [Colace] 100 mg PO BID cap 07/29/17 [Rx] Famotidine [Pepcid] 20 mg PO Q12H tablet 07/29/17 [Rx] Patient Handouts: Total Knee Replacement, Care After, [id number], Total Knee Replacement, [id number] Referrals: Anu Cormier PA-C [Physician Monogram Maker] - 08/05/17 11:45 am (Please follow up with Anu Cormier on 08/05/17 at 11:45am, and you have second follow up with Anu Cormier on 08/13/17 at 10:00.) - Patient Data Vitals - Most Recent: Last Vital Signs Temp 98.8 F 07/29/17 12:01 Pulse 74 07/29/17 12:01 Resp 17 07/29/17 13:00 BP 140/67 07/29/17 12:01 Pulse Ox 94 L 07/29/17 12:01 Weight - Most Recent: 235 lb 1.6 oz Med Orders - Current: Current Medications Discontinued Medications Aspirin (Ecotrin) 325 mg PO BID [facility] Last Admin: 07/29/17 09:09 Dose: 325 mg Bisacodyl (Dulcolax) 5 mg PO DAILY PRN PRN Reason: Constipation Bupivacaine HCl (Marcaine 0.25%) Confirm Administered Dose 30 ml .ROUTE .STK- MED ONE Stop: 07/28/17 09:24 Last Admin: 07/28/17 11:30 Dose: 30 ml Cefazolin Sodium (Ancef) Confirm Administered Dose 2 gm .ROUTE .STK-MED ONE Stop: 07/28/17 09:24 Last Admin: 07/28/17 11:25 Dose: 2 gm Cefazolin Sodium (Ancef) Confirm Administered Dose 2 gm .ROUTE .STK-MED ONE Stop: 07/28/17 10:09 Morphine Sulfate 8 mg/Epinephrine HCl 0.3 mg/Cefuroxime Sodium 750 mg/Ketorolac Tromethamine 30 mg/Sodium Chloride 27.9 ml 0 mg .XX ONETIME ONE Stop: 07/28/17 06:38 Last Admin: 07/28/17 11:30 Dose: 788.3 mg Cyclobenzaprine HCl (Flexeril) 10 mg PO TID PRN PRN Reason: Spasms Last Admin: 07/29/17 04:57 Dose: 10 mg Diphenhydramine HCl (Benadryl) 25 mg IVPUSH Q4H PRN PRN Reason: Nausea Docusate Sodium (Colace) 100 mg PO BID [facility] Last Admin: 07/29/17 09:09 Dose: 100 mg Famotidine (Pepcid) 20 mg PO Q12H [facility] Last Admin: 07/29/17 09:10 Dose: 20 mg Fentanyl (Sublimaze) Confirm Administered Dose 100 mcg .ROUTE .STK-MED ONE Stop: 07/28/17 10:08 Fentanyl (Sublimaze) 50 mcg IVPUSH Q5M PRN PRN Reason: PAIN Stop: 07/28/17 15:00 Lactated Ringer's (Ringers, Lactated) 1,000 mls @ 125 mls/hr IV ASDIRECTED [facility] Stop: 07/28/17 18:00 Last Admin: 07/28/17 09:30 Dose: 125 mls/hr Cefazolin Sodium/Dextrose 2 gm (/ Premix) 50 mls @ 100 mls/hr IV Q8H [facility] Stop: 07/29/17 09:59 Last Admin: 07/29/17 09:36 Dose: 100 mls/hr Lidocaine HCl (Xylocaine-Mpf 1%) Confirm Administered Dose 4 mls @ as directed .ROUTE .STK-MED ONE Stop: 07/28/17 10:08 Iodine (Iodine 2% Mild Tincture) Confirm Administered Dose 30 ml .ROUTE .STK- MED ONE Stop: 07/28/17 09:24 Last Admin: 07/28/17 11:22 Dose: 18 ml Ketorolac Tromethamine (Toradol) 15 mg IVPUSH Q6H PRN PRN Reason: Pain Last Admin: 07/29/17 12:21 Dose: 15 mg Lidocaine/Sodium Bicarbonate (Buffered Lidocaine 1% In Ns 8.4%) 0.25 ml IV ONETIME PRN PRN Reason: Prior to IV Start Stop: 07/28/17 18:00 Last Admin: 07/28/17 09:30 Dose: 0.25 ml Magnesium Hydroxide (Milk Of Magnesia) 30 ml PO BID PRN PRN Reason: Constipation Midazolam HCl (Versed 1 Mg/Ml) Confirm Administered Dose 2 mg .ROUTE .STK-MED ONE Stop: 07/28/17 10:08 Morphine Sulfate (Morphine) 2 mg IVPUSH Q2H PRN PRN Reason: Breakthrough Pain Morphine Sulfate (Duramorph Pf) Confirm Administered Dose 1 mg .ROUTE .STK-MED ONE Stop: 07/28/17 10:34 Naloxone HCl (Narcan) 0.1 mg IVPUSH Q5M PRN PRN Reason: Oversedation Ondansetron HCl (Zofran) 4 mg IVPUSH Q6H PRN PRN Reason: Nausea/Vomiting Last Admin: 07/28/17 17:39 Dose: 4 mg Ondansetron HCl (Zofran) Confirm Administered Dose 4 mg .ROUTE .STK-MED ONE Stop: 07/28/17 10:08 Oxycodone/Acetaminophen (Percocet 325-5 Mg) 1 - 2 tab PO Q4H PRN PRN Reason: Pain Last Admin: 07/29/17 12:16 Dose: 2 tab Propofol (Diprivan 20 Ml) Confirm Administered Dose 200 mg .ROUTE .STK-MED ONE Stop: 07/28/17 10:08 Propofol (Diprivan 20 Ml) Confirm Administered Dose 200 mg .ROUTE .STK-MED ONE Stop: 07/28/17 11:06 Propofol (Diprivan 20 Ml) Confirm Administered Dose 200 mg .ROUTE .STK-MED ONE Stop: 07/28/17 11:43 Senna (Senna) 8.6 mg PO BID PRN PRN Reason: Constipation Sodium Chloride (Saline Flush) 10 ml FLUSH ASDIRECTED PRN PRN Reason: Keep Vein Open Stop: 07/28/17 18:00 Tranexamic Acid (Cyklokapron) Confirm Administered Dose 1,000 mg .ROUTE .STK- MED ONE Stop: 07/28/17 09:24 Last Admin: 07/28/17 11:38 Dose: 1,000 mg Vancomycin HCl (Vancomycin) Confirm Administered Dose 1 gm .ROUTE .STK-MED ONE Stop: 07/28/17 09:24 Last Admin: 07/28/17 11:35 Dose: 1 gm *Q Meaningful Use (DIS) - VTE *Q VTE Criteria *Q: - Stroke *Q Stroke Criteria *Q: - AMI *Q AMI Criteria *Q:
--- NOTE | 2017-08-04 09:05 | PCM.OPNOTE ---
- General Post-Op/Procedure Note Date of Surgery/Procedure: 07/28/17 Operative Procedure(s): right total knee arthroplasty Pre Op Diagnosis: right knee osteoarthrosis Post-Op Diagnosis: Same Anesthesia Technique: Local, MAC, Spinal Primary Surgeon: Rene Beaulieu Anesthesia Provider: Luis Chatman Sales Utility Representative: Anu Cormier Sales Utility Representative: Dorothea Ames EBL in mLs: 200 Complications: None Condition: Good
--- NOTE | 2017-08-04 09:47 | OR ---
DATE OF OPERATION: 07/28/2017 SURGEON: Rene Beaulieu MD OPERATION PERFORMED: Right total knee arthroplasty. PREOPERATIVE DIAGNOSIS: Right knee osteoarthrosis. POSTOPERATIVE DIAGNOSIS: Right knee osteoarthrosis. ANESTHESIA: Local MAC with spinal. ANESTHESIA PROVIDER: Luis Chatman CRNA. PULMONARY SPECIALIST: Anu Cormier PA-C and Dorothea Ames LPN. ESTIMATED BLOOD LOSS: 200 mL COMPLICATIONS: None. CONDITION: Stable. IMPLANTS: 1. [place] size 5, press-fit PS femur. 2. Jelani size 5, 9 mm PS X3 polyethylene. 3. [place] size 5, press-fit tibial base plate. 4. Press-fit 32 x 10 mm Jelani patella. DESCRIPTION OF PROCEDURE: The patient was identified in the preop holding area. Proper site was marked and identified by the surgeon. The patient was taken back to the operating theater. After adequate anesthesia, the patient's right lower extremity had a nonsterile tourniquet applied and it was then sterilely prepped and draped in the usual sterile fashion. OR timeout was performed. The patient received 2 g IV Ancef. At this time, right lower extremity was exsanguinated. Tourniquet was insufflated to 300 mmHg. Standard medial parapatellar incision was made. Medial parapatellar arthrotomy was created. Deep fibers of the MCL were raised and anterior fat pad was resected. At this time, attention was turned to the patella. Patella measured 24, it was resected to a 14 patella. Drill holes were then drilled and found to be in adequate position. The drill was then drilled in the distal femur and the intramedullary distal femoral cutting guide was then placed. 8 mm was resected off the distal femur and was found to be an adequate resection. Sizing guide was placed. It was found to be a [place] size 5, press-fit PS femur that was shown on the implant record at the beginning of this dictation. The drill holes were drilled for the epicondylar axis using [place] line and epicondyles as reference. At this time, the 4-in-1 cutting block was placed. An anterior posterior and anterior and posterior chamfer cuts were then completed. The correct size box cut was then placed and the box cut was completed and found to be an adequate resection. Attention was turned to the tibia. The posterior medial lateral retractors were placed. The extramedullary tibial guide was placed. It was placed in the old footprint of the ACL. It was aligned with the center of the ankle and 0 degrees of slope, 9 mm was then resected off the unaffected lateral side. There was found to be an acceptable reduction. At this time, posterior osteophytes were removed along with medial and lateral meniscus. A trial implant was placed with a correct sized tibia that was mentioned at the beginning of the dictation. A trial 9 mm spacer was then placed. The patient's knee was brought through range of motion. The patella was tracking centrally and was stable to varus and valgus stress. Alignment was found to be roughly at 0 degrees. The tibia was stamped and drilled in proper rotation. The universal tibial base plate was impacted into place. Next, the Jelani size 5, press-fit PS femur was impacted into place and the Jel[place] size 5, 9 mm PS X3 polyethylene was placed. The patient's knee was brought into full extension. The patella was then impacted into place at this time. Tourniquet was deflated. One liter dilute Betadine solution was irrigated through the knee along with 3 L of pulse lavage irrigation with Ancef. Periarticular injection was then completed. The patient's knee was brought through a range of motion. Knee was found to be stable to varus valgus stress, the patella was tracking centrally with full range of motion. At this time, a #2 barbed suture was used for closure of the medial parapatellar arthrotomy. Topical tranexamic acid was placed. 2-0 Vicryl was used subcutaneously, a running 3-0 Monocryl was used subcuticularly. The patient tolerated the procedure well and was sent to the PACU in stable condition. MMODAL /[id number] SUKUMAR
== END 2017-07-29 14:00 | disposition home or self-care (01) | DRG 302 ==
LOC: JD.MS 09:02
PROVIDERS: ADMIT Orthopaedic Surgery; ATTEND Orthopaedic Surgery
PROC: 0SRC0J9 Replacement of Right Knee Joint with Synthetic Substitute, Cemented, Open Approach (ICD-10-PCS; principal; 2017-07-28)
DX: M17.11 Unilateral primary osteoarthritis, right knee (principal); G47.33 Obstructive sleep apnea (adult) (pediatric); Z79.82 Long term (current) use of aspirin; Z79.899 Other long term (current) drug therapy; H54.7 Unspecified visual loss; E66.9 Obesity, unspecified; Z68.33 Body mass index [BMI] 33.0-33.9, adult
CPT/HCPCS: 01402; 36415; 73560-26-RT; 73560-RT; 80053; 85027; 87641; 94762; 97110-GP; 97116-GP; 97161-GP; 97165-GO; 97535-GO; A9270-GY; C1776; J0171; J0690; J0697; J1885; J2250; J2270; J2274; J2405; J2704; J3010; J3370; J3490; J7120

== ENCOUNTER 2018-05-09 12:55 | Emergency (ER) | payer BC ==
[2018-05-09] MEDS ORDERED: Sodium Chloride 0.9% 1,000 ML IV SCH (13:15)
[2018-05-09] MEDS ORDERED: Sodium Chloride 0.9% 10 ML Syringe FLUSH PRN (13:15)
[2018-05-09] MEDS ORDERED: Ondansetron 4 MG/2 ML SDV IVPUSH ONE (13:29)
--- NOTE | 2018-05-09 16:27 | EDM.PDOC ---
ED HPI GENERAL MEDICAL PROBLEM - General Chief Complaint: Cardiovascular Problem Stated Complaint: HIGH BLOOD PRESSURE, CLAMMY AND SHAKEY Time Seen by Provider: 05/09/18 13:09 Source of Information: Reports: Patient History Limitations: Reports: No Limitations - History of Present Illness INITIAL COMMENTS - FREE TEXT/NARRATIVE: The patient presents with his family for dizziness. He went to work this morning and he was feeling fine. 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 He was doing good and he went home for lunch and he developed dizziness where the room was spinning. He also had left elbow pain, nausea, vomiting and chills. This has never happened before. He has no headache, chest pain or shortness of breath. He has no abdominal pain. He has no history of HTN, hypercholesterolemia or diabetes. He does not smoke. Onset: Gradual Duration: Minutes: Location: Reports: Upper Extremity, Left (elbow) Quality: Reports: Ache Severity: Mild Improves with: Reports: None Worsens with: Reports: None Associated Symptoms: Reports: Fever/Chills, Nausea/Vomiting. Denies: Confusion , Chest Pain, Cough, Headaches, Shortness of Breath Left Arm Pain Score (Numeric/FACES): 4 - Related Data Allergies Allergy/AdvReac Type Severity Reaction Status Date / Time No Known Allergies Allergy Verified 05/09/18 13:22 Home Meds: Home Meds Aspirin [Adult Aspirin] 81 mg PO DAILY 05/09/18 [History] Fish Oil/[place]-3 Fatty Acids [Fish Oil 1,000 MG] 1 cap PO DAILY 05/09/18 [ History] Past Medical History HEENT History: Reports: Impaired Vision, Other (See Below) Other HEENT History: wears glasses Cardiovascular History: Reports: SOB on Exertion Respiratory History: Reports: Sleep Apnea Gastrointestinal History: Reports: None Genitourinary History: Reports: None 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 Musculoskeletal History: Reports: Osteoarthritis, Other (See Below) Neurological History: Reports: None Psychiatric History: Reports: None Endocrine/Metabolic History: Reports: Obesity/BMI 30+ Hematologic History: Reports: None Immunologic History: Reports: None Oncologic (Cancer) History: Reports: None Dermatologic History: Reports: None - Past Surgical History Head Surgeries/Procedures: Reports: None GI Surgical History: Reports: Colonoscopy Male Surgical History: Reports: None Neurological Surgical History: Reports: Other (See Below) Other Neurological Surgeries/Procedures: back surgery Musculoskeletal Surgical History: Reports: Other (See Below) Other Musculoskeletal Surgeries/Procedures:: R carpal tunnel syndrome with repair, back surgery, left foot bone spur surgery Oncologic Surgical History: Reports: None Dermatological Surgical History: Reports: None Social & Family History - Tobacco Use Smoking Status *Q: Never Smoker - Caffeine Use Caffeine Use: Reports: None - Recreational Drug Use Recreational Drug Use: No ED ROS GENERAL - Review of Systems Review Of Systems: See Below Constitutional: Reports: Chills HEENT: Reports: No Symptoms Respiratory: Reports: No Symptoms Cardiovascular: Reports: No Symptoms Endocrine: Reports: No Symptoms GI/Abdominal: Reports: Nausea, Vomiting. Denies: Abdominal Pain, Diarrhea : Reports: No Symptoms Musculoskeletal: Reports: No Symptoms Skin: Reports: No Symptoms Neurological: Reports: Dizziness. Denies: Headache ED EXAM, GENERAL - Physical Exam Exam: See Below Exam Limited By: No Limitations General Appearance: Alert, No Apparent Distress Eye Exam: Left Eye: Nystagmus (Mild), Bilateral Eye: EOMI Ears: Normal External Exam Nose: Normal Inspection Throat/Mouth: Normal Inspection Head: Atraumatic, Normocephalic Neck: Normal Inspection Respiratory/Chest: No Respiratory Distress, Lungs Clear, Normal Breath Sounds Cardiovascular: Regular Rate, Rhythm, No Edema, No Murmur GI/Abdominal: Soft, Non-Tender, No Organomegaly, No Mass Back Exam: Normal Inspection Extremities: Normal Inspection Neurological: Alert, Oriented, No Motor/Sensory Deficits EKG INTERPRETATION EKG Date: 05/09/18 Time: 13:05 Rhythm: NSR Rate (Beats/Min): 95 [place]: Normal P-Wave: Present QRS: Normal ST-T: Normal QT: Normal Course - Vital Signs Last Recorded V/S: Last Vital Signs Temp 98.5 F 05/09/18 13:10 Pulse 98 05/09/18 13:10 Resp 20 05/09/18 15:30 BP 156/104 H 05/09/18 15:30 Pulse Ox 95 05/09/18 15:30 - Orders/Labs/Meds Orders: Active Orders 24 hr Category Date Time Status Cardiac Monitoring [RC] . DIRECTED Care 05/09/18 13:15 Active EKG Documentation Completion [RC] ASDIRECTED Care 05/09/18 14:37 Active EKG Documentation Completion [RC] STAT Care 05/09/18 13:16 Active Peripheral IV Care [RC] . DIRECTED Care 05/09/18 13:16 Active Chest 1V Frontal [CR] Stat Exams 05/09/18 13:16 Taken Head wo Cont [CT] Stat Exams 05/09/18 13:16 Taken Sodium Chloride 0.9% [Normal Saline] 1,000 ml Med 05/09/18 13:15 Active IV ASDIRECTED Sodium Chloride 0.9% [Saline Flush] Med 05/09/18 13:15 Active 10 ml FLUSH ASDIRECTED PRN Peripheral IV Insertion Adult [OM.PC] Stat Oth 05/09/18 13:15 Ordered EKG 12 Lead [EK] Stat Ther 05/09/18 14:37 Ordered Medication Orders Sodium Chloride (Normal Saline) 1,000 mls @ 125 mls/hr IV ASDIRECTED SULAIMAN Last Admin: 05/09/18 13:35 Dose: 125 mls/hr Sodium Chloride (Saline Flush) 10 ml FLUSH ASDIRECTED PRN PRN Reason: Keep Vein Open Last Admin: 05/09/18 13:36 Dose: 10 ml Labs: Laboratory Tests 05/09/18 05/09/18 Range/Units 13:15 13:15 WBC 9.93 H (4.23-9.07) K/mm3 RBC 5.19 (4.63-6.08) M/mm3 Hgb 15.1 (13.7-17.5) gm/L Hct 44.5 (40.1-51.0) % MCV 85.7 (79.0-92.2) fl MCH 29.1 (25.7-32.2) pg MCHC 33.9 (32.2-35.5) g/dl RDW Std Deviation 41.8 (35.1-43.9) fL Plt Count 224 (163-337) K/mm3 MPV 10.9 (9.4-12.3) fl Neut % (Auto) 77.4 H (34.0-67.9) % Lymph % (Auto) 13.6 L (21.8-53.1) % [place] % (Auto) 7.5 (5.3-12.2) % Eos % (Auto) 1.0 (0.8-7.0) Baso % (Auto) 0.3 (0.1-1.2) % Neut # (Auto) 7.69 H (1.78-5.38) K/mm3 Lymph # (Auto) 1.35 (1.32-3.57) K/mm3 [place] # (Auto) 0.74 (0.30-0.82) K/mm3 Eos # (Auto) 0.10 (0.04-0.54) K/mm3 Baso # (Auto) 0.03 (0.01-0.08) K/mm3 Sodium 144 (136-145) mEq/L Potassium 3.5 (3.5-5.1) mEq/L Chloride 108 H (98-107) mEq/L Carbon Dioxide 27 (21-32) mEq/L Anion Gap 12.5 (5-15) BUN 15 (7-18) mg/dL Creatinine 1.0 (0.7-1.3) mg/dL Est Cr Clr Drug Dosing 80.52 mL/min Estimated GFR (MDRD) > 60 (>60) mL/min BUN/Creatinine Ratio 15.0 (14-18) Glucose 93 (74-106) mg/dL Calcium 9.3 (8.5-10.1) mg/dL Total Bilirubin 0.8 (0.2-1.0) mg/dL AST 31 (15-37) U/L ALT 50 (16-63) U/L Alkaline Phosphatase 92 (46-116) U/L Troponin I < 0.017 (0.00-0.056) ng/mL Total Protein 7.3 (6.4-8.2) g/dl Albumin 4.2 (3.4-5.0) g/dl Globulin 3.1 gm/dL Albumin/Globulin Ratio 1.4 (1-2) Meds: Medications Generic Name Dose Route Start Last Admin Trade Name Freq PRN Reason Stop Dose Admin Sodium Chloride 1,000 mls @ 125 mls/hr 05/09/18 13:15 05/09/18 13:35 Normal Saline IV 125 mls/hr ASDIRECTED SULAIMAN Administration Sodium Chloride 10 ml 05/09/18 13:15 05/09/18 13:36 Saline Flush FLUSH 10 ml ASDIRECTED PRN Administration Keep Vein Open Discontinued Medications Generic Name Dose Route Start Last Admin Trade Name Freq PRN Reason Stop Dose Admin Diazepam 5 mg 05/09/18 13:55 05/09/18 14:02 Valium IVPUSH 05/09/18 13:56 5 mg ONETIME ONE Administration Meclizine HCl 25 mg 05/09/18 13:30 05/09/18 13:43 Antivert PO 05/09/18 13:31 25 mg ONETIME ONE Administration Ondansetron HCl 4 mg 05/09/18 13:29 05/09/18 13:40 Zofran IVPUSH 05/09/18 13:30 4 mg ONETIME ONE Administration - Re-Assessments/Exams Free Text/Narrative Re-Assessment/Exam: 05/09/18 16:29 I ordered an IV NS at 125mL/hr, zofran 4mg IV, antivert 25mg by mouth, EKG, CT of his head and labs. His EKG shows a NSR with no acute changes. His head CT looks good. His CBC and CMP look good. His troponin is negative. He had 4 episodes lasting about 2 minutes of dizziness. He had nystagmus and his eyes were fluttering and his right arm would shake. He did also develop some chest pain with it. I did another EKG and there were no changes. I gave him valium 5mg IV. He feels better after that. I called Dr Montalvo the nuerologist business continuity specialist at [facility] in [place] and he did not think this was a stroke or a seizure. He felt this was positional vertigo or paroxismal vertigo. I feel he does need to be admitted. I called Dr Srinivasan and she agreed to the admission. The big question Dr Srinivasan and the patient had was why now for the vertigo. Dr Srinivasan will be doing some more testing on that. 05/09/18 16:36 Departure - Departure Time of Disposition: 16:35 Disposition: Refer to Observation Condition: Fair Clinical Impression: Vertigo Chest pain Qualifiers: Chest pain type: unspecified Qualified Code(s): R07.9 - Chest pain, unspecified Nausea and vomiting Qualifiers: Vomiting type: unspecified Vomiting Intractability: non-intractable Qualified Code(s): R11.2 - Nausea with vomiting, unspecified Referrals: Yasir Appiah MD [Primary Care Provider] - - My Orders Last 24 Hours: My Active Orders 05/09/18 13:15 Cardiac Monitoring [RC] . DIRECTED Sodium Chloride 0.9% [Normal Saline] 1,000 ml IV ASDIRECTED Sodium Chloride 0.9% [Saline Flush] 10 ml FLUSH ASDIRECTED PRN Peripheral IV Insertion Adult [OM.PC] Stat 05/09/18 13:16 EKG Documentation Completion [RC] STAT Peripheral IV Care [RC] . DIRECTED Chest 1V Frontal [CR] Stat Head wo Cont [CT] Stat 05/09/18 14:37 EKG Documentation Completion [RC] ASDIRECTED EKG 12 Lead [EK] Stat - Assessment/Plan Last 24 Hours: My Active Orders 05/09/18 13:15 Cardiac Monitoring [RC] . DIRECTED Sodium Chloride 0.9% [Normal Saline] 1,000 ml IV ASDIRECTED Sodium Chloride 0.9% [Saline Flush] 10 ml FLUSH ASDIRECTED PRN Peripheral IV Insertion Adult [OM.PC] Stat 05/09/18 13:16 EKG Documentation Completion [RC] STAT Peripheral IV Care [RC] . DIRECTED Chest 1V Frontal [CR] Stat Head wo Cont [CT] Stat 05/09/18 14:37 EKG Documentation Completion [RC] ASDIRECTED EKG 12 Lead [EK] Stat
[2018-05-09 18:41] VITALS: BP 143/104
--- NOTE | 2018-05-11 07:14 | CT ---
Head CT Technique: Multiple axial sections through the brain were obtained. Intravenous contrast was not utilized. Comparison: No prior intracranial imaging is available. Findings: Ventricles along with basal cisterns and sulci over the convexities are within normal limits for the patient's age. No abnormal parenchymal densities are seen. No evidence of intracranial hemorrhage. No midline shift or mass effect is seen. Bone window settings were reviewed which show no acute calvarial abnormality. Visualized sinuses are clear. Impression: 1. Nothing acute is seen on noncontrast head CT exam. Diagnostic code #1 I agree with preliminary report from [facility], finalized on 05/09/18, 3:44 PM Central Time
--- NOTE | 2018-05-11 07:14 | CR ---
Chest: Portable view of the chest was obtained. Comparison: No prior chest x-ray. Heart size and mediastinum are within normal limits for portable technique. Lungs are clear. Bony structures are grossly intact. Impression: 1. Nothing acute is seen on portable chest x-ray. Diagnostic code #1
== END 2018-05-09 18:40 | disposition home or self-care (01) ==
LOC: JD.ED 12:55 → UNDOADMOB 17:08 → JD.MS 17:08
DX: R42 Dizziness and giddiness (principal); R11.2 Nausea with vomiting, unspecified; R07.9 Chest pain, unspecified; M25.522 Pain in left elbow; Z79.82 Long term (current) use of aspirin; Z79.899 Other long term (current) drug therapy
CPT/HCPCS: 36415; 70450; 71045; 80053; 84484; 85025; 93005; 96361; 96374; 96375; 99285; A9270; J2405; J3360; J7040; J7050

== ENCOUNTER 2021-05-10 07:47 | Day surgery (SDC) | payer BC ==
[~2021-05-10 07:47] MED LIST changes: +Acetaminophen 325 MG Tab PO SCH; -Bisacodyl 5 MG Tab PO PRN; +Lidocaine 1%/Sod Bicarbonate in NS 8.4% 1 ML Syringe IDERM PRN; -Lidocaine 1%/Sod Bicarbonate in NS 8.4% 1 ML Syringe IV PRN; -Magnesium Hydroxide 400 MG/5 ML Susp 30 ML Cup PO PRN; +Midazolam 1 MG/ML 2 ML SDV ONE; -Morphine 2 MG/ML Syringe IVPUSH PRN; +Morphine 8 MG, EPINEPHrine 0.3 MG, Cefuroxime 750 MG, Ketorolac 30 MG, Sodium Chloride ... PRN; -Naloxone 0.4 MG/ML SDV IVPUSH PRN; -Ondansetron 4 MG/2 ML SDV IVPUSH PRN; +Pregabalin 25 MG Cap PO SCH; +Propofol 200 MG/20 ML SDV ONE; -Sennosides 8.6 MG Tab PO PRN; +ceFAZolin 1 GM Vial ONE; -diphenhydrAMINE 50 MG/ML SDV IVPUSH PRN; +fentaNYL 100 MCG/2 ML SDV ONE; +oxyCODONE ER 10 MG TAB.ER PO SCH
--- NOTE | 2021-05-10 08:27 | PCM.PREANE ---
Preanesthetic Assessment - Procedure Proposed Procedure: left total knee arthropolasty - Anesthesia/Transfusion/Family Hx Anesthesia History: Prior Anesthesia Without Reaction Family History of Anesthesia Reaction: No Transfusion History: No Prior Transfusion(s) - Review of Systems General: No Symptoms Pulmonary: No Symptoms Cardiovascular: No Symptoms Gastrointestinal: No Symptoms Neurological: No Symptoms Other: Reports: None - Physical Assessment NPO Status Date: 05/09/21 NPO Status Time: 21:30 Vital Signs: Last Vital Signs Temp 97.8 F 05/10/21 08:10 Pulse Resp BP Pulse Ox Height: 5 ft 9 in Weight: 106 kg ASA Class: 2 Mental Status: Alert & Oriented x3 Airway Class: Mallampati = 3 Dentition: Reports: Normal Dentition Thyro-Mental Finger Breadths: 3 Mouth Opening Finger Breadths: 3 ROM/Head Extension: Full Lungs: Clear to Auscultation, Normal Respiratory Effort Cardiovascular: Regular Rate, Regular Rhythm - Allergies Allergies/Adverse Reactions: Allergies Allergy/AdvReac Type Severity Reaction Status Date / Time No Known Allergies Allergy Verified 05/08/21 14:46 - Blood Blood Available: No - Acknowledgements Anesthesia Type Planned: Spinal Pt an Appropriate Candidate for the Planned Anesthesia: Yes Alternatives and Risks of Anesthesia Discussed w Pt/Guardian: Yes Pt/Guardian Understands and Agrees with Anesthesia Plan: Yes PreAnesthesia Questionnaire HEENT History: Reports: Hard of Hearing, Impaired Vision, Other (See Below) Other HEENT History: wears glasses Cardiovascular History: Reports: Hypertension, SOB on Exertion Respiratory History: Reports: Sleep Apnea (cpap) Gastrointestinal History: Reports: None Genitourinary History: Reports: None 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 Musculoskeletal History: Reports: Osteoarthritis, Other (See Below) Neurological History: Reports: None Psychiatric History: Reports: None Endocrine/Metabolic History: Reports: Obesity/BMI 30+ Hematologic History: Reports: None Immunologic History: Reports: None Oncologic (Cancer) History: Reports: None Dermatologic History: Reports: None - Infectious Disease History Infectious Disease History: Reports: None - Past Surgical History Head Surgeries/Procedures: Reports: None Cardiovascular Surgical History: Reports: None Respiratory Surgical History: Reports: None GI Surgical History: Reports: Colonoscopy Female Surgical History: Reports: None Male Surgical History: Reports: None Endocrine Surgical History: Reports: None Neurological Surgical History: Reports: Other (See Below) Other Neurological Surgeries/Procedures: back surgery Musculoskeletal Surgical History: Reports: Carpal Tunnel, Knee Replacement, Other (See Below) Other Musculoskeletal Surgeries/Procedures:: R carpal tunnel syndrome with repair, back surgery, left foot bone spur surgery Oncologic Surgical History: Reports: None Dermatological Surgical History: Reports: None - SUBSTANCE USE Tobacco Use Status *Q: Never Tobacco User Tobacco Use Within Last Twelve Months: No Second Hand Smoke Exposure: No Days Per Week of Alcohol Use: 0 Recreational Drug Use History: No - HOME MEDS Home Medications: Home Meds Aspirin [Aspirin EC] 325 mg PO BID #84 tab 05/08/21 [Rx] Cholecalciferol (Vitamin D3) [Vitamin D3] 5,000 unit PO DAILY 05/08/21 [History] Cyclobenzaprine [Flexeril] 10 mg PO BID PRN #20 tab 05/08/21 [Rx] Krill Oil 500 mg PO DAILY 05/08/21 [History] Multivitamin 1 tab PO DAILY 05/08/21 [History] hydroCHLOROthiazide [Hydrochlorothiazide] 25 mg PO DAILY 05/08/21 [History] oxyCODONE 5 - 10 mg PO Q4H PRN #40 tab 05/08/21 [Rx] - CURRENT (IN HOUSE) MEDS Current Meds: Current Medications Acetaminophen (Acetaminophen 325 Mg Tab) 975 mg PO ONETIME SULAIMAN Stop: 05/10/21 16:00 Last Admin: 05/10/21 08:10 Dose: 975 mg Documented by: Morphine Sulfate 8 mg/Epinephrine HCl 0.3 mg/Cefuroxime Sodium 750 mg/Ketorolac Tromethamine 30 mg/Sodium Chloride 7.9 ml 0 mg .XX ASDIRECTED PRN PRN Reason: Pain Stop: 05/10/21 18:00 Lactated Ringer's (Ringers, Lactated) 1,000 mls @ 125 mls/hr IV ASDIRECTED SULAIMAN Stop: 05/10/21 23:00 Last Admin: 05/10/21 08:17 Dose: 125 mls/hr Documented by: Lidocaine/Sodium Bicarbonate (Lidocaine 1%/Sod Bicarbonate In Ns 8.4% 1 Ml Syringe) 0.25 ml IDERM ONETIME PRN PRN Reason: Prior to IV Start Stop: 05/10/21 18:00 Oxycodone HCl (Oxycodone Er 10 Mg Tab.Er) 10 mg PO ONETIME SULAIMAN Stop: 05/10/21 16:00 Last Admin: 05/10/21 08:11 Dose: 10 mg Documented by: Pregabalin (Pregabalin 25 Mg Cap) 50 mg PO ONETIME SULAIMAN Stop: 05/10/21 16:00 Last Admin: 05/10/21 08:11 Dose: 50 mg Documented by: Sodium Chloride (Sodium Chloride 0.9% 10 Ml Syringe) 10 ml FLUSH ASDIRECTED PRN PRN Reason: Keep Vein Open Stop: 05/10/21 18:00 Discontinued Medications Cefazolin Sodium (Cefazolin 1 Gm Vial) Confirm Administered Dose 2 gm .ROUTE .STK-MED ONE Stop: 05/10/21 06:21 Fentanyl (Fentanyl 100 Mcg/2 Ml Sdv) Confirm Administered Dose 100 mcg .ROUTE .STK-MED ONE Stop: 05/10/21 06:18 Midazolam HCl (Midazolam 1 Mg/Ml 2 Ml Sdv) Confirm Administered Dose 2 mg .ROUTE .STK-MED ONE Stop: 05/10/21 06:18 Propofol (Propofol 200 Mg/20 Ml Sdv) Confirm Administered Dose 400 mg .ROUTE .STK-MED ONE Stop: 05/10/21 06:18
[2021-05-10] MEDS ORDERED: HYDROmorphone 0.5 MG/0.5 ML Syringe IVPUSH PRN (09:19)
[2021-05-10] MEDS ORDERED: fentaNYL 100 MCG/2 ML SDV IVPUSH PRN (09:19)
[2021-05-10] MEDS ORDERED: Ondansetron 4 MG/2 ML SDV IVPUSH PRN (09:19)
[2021-05-10] MEDS ORDERED: Lactated Ringers 1,000 ML ONE ×2 (09:32→09:33)
[2021-05-10] MEDS ORDERED: Ondansetron 4 MG/2 ML SDV ONE (09:36)
[2021-05-10] MEDS ORDERED: ePHEDrine 50 MG/ML SDV ONE (09:38)
[2021-05-10] MEDS ORDERED: Propofol 200 MG/20 ML SDV ONE ×2 (09:44→10:26)
[2021-05-10] MEDS: Vancomycin 1 GM SDV ONE ×2 (09:56→10:31)
[2021-05-10] MEDS: Morphine 8 MG, EPINEPHrine 0.3 MG, Cefuroxime 750 MG, Ketorolac 30 MG, Sodium Chloride ... PRN ×10 (09:56→10:23)
[2021-05-10] MEDS ORDERED: Ketorolac 30 MG/ML SDV ONE (10:22)
--- NOTE | 2021-05-10 11:00 | PCM.POSTAN ---
POST ANESTHESIA ASSESSMENT - MENTAL STATUS Mental Status: Alert, Oriented - VITAL SIGNS Vital Signs: Last Vital Signs Temp 97.7 F 05/10/21 10:51 Pulse 63 05/10/21 08:00 Resp 15 05/10/21 10:51 BP 115/67 05/10/21 10:51 Pulse Ox 100 05/10/21 10:51 - RESPIRATORY Respiratory Status: Respiratory Rate WNL, Airway Patent, O2 Saturation Stable, Supplemental Oxygen - CARDIOVASCULAR CV Status: Pulse Rate WNL, Blood Pressure Stable - GASTROINTESTINAL GI Status: No Symptoms - PAIN Pain Score: 0 - POST OP HYDRATION Hydration Status: Adequate & Stable
[2021-05-10] MEDS ORDERED: Cyclobenzaprine 10 MG Tab PO ONE (11:22)
[2021-05-10] MEDS ORDERED: oxyCODONE 5 MG Tab PO PRN (11:22)
--- NOTE | 2021-05-10 12:33 | CR ---
Left knee: AP and crosstable lateral views of the left knee were obtained. Comparison: Prior CT left knee study 05/02/21. Knee prosthesis is noted. Patellar prosthesis is also noted. Components are aligned. Underlying bony structure shows nothing acute. Soft tissue air is seen. Detached anterior tibial tuberosity is incidentally noted. Impression: 1. Procedural study as noted above. Diagnostic code #2
--- NOTE | 2021-05-10 12:35 | PCM48HPAN ---
Post Anesthesia Note - EVALUATION WITHIN 48HRS OF ANESTHETIC Vital Signs in Normal Range: Yes Patient Participated in Evaluation: Yes Respiratory Function Stable: Yes Airway Patent: Yes Cardiovascular Function Stable: Yes Hydration Status Stable: Yes Pain Control Satisfactory: Yes Nausea and Vomiting Control Satisfactory: Yes Mental Status Recovered: Yes (up walking with PT) Vital Signs: Last Vital Signs Temp 97.7 F 05/10/21 12:00 Pulse 60 05/10/21 12:00 Resp 17 05/10/21 12:00 BP 132/71 05/10/21 12:00 Pulse Ox 99 05/10/21 12:00
--- NOTE | 2021-05-10 12:45 | PCM.SN.2 ---
- Free Text/Narrative Note: Left selective femoral nerve block at the adductor canal for post-procedure pain control under US guidance requested by Dr. Beauleiu. Date: 05/10/2021 Time Out: 1106 Start: 1106 End: 1111 Chart reviewed. Consent signed. Questions answered. Appropriate monitors applied. Time out performed. Left mid-shaft femur identified with ultrasound, scanning medially of femur, the femoral artery in the adductor canal visualized, and the femoral nerve located laterally to the artery. The skin was prepped lateral to the ultrasound probe with chlorahexadine times two. The 21ga 4 insulated block needle was inserted under direct ultrasound guidance into the adductor canal. 25mL of 0.5% ropivacaine with 1:200,000 epinephrine was injected circumferentially around the nerve with intermittent negative aspiration noted. Patient tolerated the procedure well. Sterile technique noted along with sterile gloves, mask, and sterile probe cover. See picture on progress note and vital signs on nurses notes. Block completed in PACU. Ezio Villalobos CRNA Time Documentation
[2021-05-10 13:19] VITALS: BP 156/75; PULSE 75
--- NOTE | 2021-05-23 06:38 | PCM.OPNOTE ---
- General Post-Op/Procedure Note Date of Surgery/Procedure: 05/10/21 Operative Procedure(s): left total knee arthroplasty with nicole lesley robotics Pre Op Diagnosis: left knee osteoarthrosis Post-Op Diagnosis: Same Anesthesia Technique: Local, MAC, Spinal Primary Surgeon: Rene Beaulieu Anesthesia Provider: Ezio Villalobos Webmethods Architect: Anu Cormier Webmethods Architect: Maryam Owusu EBL in mLs: 200 Complications: None Condition: Good Free Text/Narrative:: 5 5 9mm 32x10
--- NOTE | 2021-05-23 07:12 | OR ---
DATE OF OPERATION: 05/10/2021 SURGEON: Rene Beaulieu MD OPERATION PERFORMED: Left total knee arthroplasty with Stevenson Alexis robotics. PREOPERATIVE DIAGNOSIS: Left knee osteoarthrosis. POSTOPERATIVE DIAGNOSIS: Left knee osteoarthrosis. ANESTHESIA: Local MAC with spinal. ANESTHESIA PROVIDER: Ezio Villalobos CRNA COPPERSMITH HELPER: Anu Cormier PA-C, and Maryam Orozco RN. ESTIMATED BLOOD LOSS: 200 mL. COMPLICATIONS: None. CONDITION: Stable. IMPLANTS: 1. Stevenson size 5 press-fit CR femur. 2. Jelani size 5 press-fit tibial baseplate. 3. Jelani size 5 9 mm CS polyethylene insert. 4. Jelani size 32 x 10 mm asymmetric patella. DESCRIPTION OF PROCEDURE: The patient was identified in the preoperative holding area. Proper site was marked and identified by the surgeon. The patient was taken back to the operative theater, where after adequate anesthesia, the patient had a nonsterile tourniquet applied to the left lower extremity. Left lower extremity was then sterilely prepped and draped in usual sterile fashion. OR time-out was performed. The patient received 2 g IV Ancef. Leg thomas then was applied to the left lower extremity. Left lower extremity was exsanguinated. Tourniquet was insufflated to 250 mmHg. Standard anterior incision was made and medial parapatellar arthrotomy was created. Deep fibers of the MCL were raised and anterior fat pad was resected. Attention was turned to the patella. Patella measured 25 and was resected to a 15 for a 32 x 10 mm patella. Drill holes were then drilled. Two 4.0 Schanz pins were then placed intraincisionally in the femur and the Jelani Alexis robotic array was placed. Two more were placed in the tibia 3 fingerbreadths below the tibial tubercle and the Stevenson Alexis robotic array was placed. Checkpoints were placed on the femur and the tibia. Hip center rotation was obtained. Medial and lateral malleoli were marked. Femur and tibial checkpoints were marked. 40 points were then obtained of both the femur and the tibia for the Jelani Alexis robotic plan. The patient's knee was brought into full extension and 90 degrees of flexion. Varus valgus stresses were applied and the Stevenson Alexis robotic plan was made for this patient. Straight saw blade was then brought in. Tibial cut was completed, anterior femoral cut was completed, and anterior chamfer cut was completed, distal femoral and posterior femoral cut. Saw blade was switched, and the distal femoral cut and posterior chamfer cuts were then completed. All bony fragments were removed. Medial and lateral meniscus were resected. Any posterior osteophytes were removed. Trial 5 base plate was then placed on the tibia. Trial 5 femur was placed on the femur and a 9 mm trial polyethylene was placed. The patient had full extension and flexion. No varus-valgus instability and no signs of liftoff. At this time, the femoral drill holes were drilled. Tibia was stamped and drilled in proper rotation. All trial implants were removed. Size 5 tibia was then impacted into place. Size 5 press-fit CR femur was impacted into place. A 9 mm CS polyethylene insert was impacted into place. The patient's knee was brought into full extension. A 32 x 10 mm press- fit patella was pressed into place. Tourniquet was deflated. Bleeders were cauterized. Periarticular injection was completed. 1 L of pulse lavage irrigation with Ancef was irrigated through the knee along with 400 mL of IrriSept irrigation. Topical tranexamic acid and vancomycin powder were applied. A #2 barbed suture was used for closure of the medial parapatellar arthrotomy. 2-0 Vicryl and Stratafix were used for subcutaneous closure and Prineo was used for skin closure. The patient had a sterile soft dressing applied and was sent to the PACU in stable condition. Please note, all Open Me robotic arrays, pins, and check points were removed before closure. MMODAL /[id number]
== END 2021-05-10 13:32 | disposition home or self-care (01) ==
LOC: JD.SDS 07:47
PROVIDERS: ATTEND Orthopaedic Surgery
DX: M17.12 Unilateral primary osteoarthritis, left knee (principal); G47.33 Obstructive sleep apnea (adult) (pediatric); E66.9 Obesity, unspecified; I10 Essential (primary) hypertension; Z79.899 Other long term (current) drug therapy; Z98.890 Other specified postprocedural states; Z68.35 Body mass index [BMI] 35.0-35.9, adult
CPT/HCPCS: 27447; 73560; 97110; 97116; 97161; A9270; C1713; C1776; J0171; J0690; J0697; J1885; J2250; J2270; J2405; J2704; J3010; J3370; J7120; 01402; 64450; 76942